=== PATIENT | female | born 1985 | race Caucasian/White ===

== ENCOUNTER 2017-08-02 23:41 | Emergency (ER) | payer SELFPAY ==
[~2017-08-02 23:41] MED LIST: Iopamidol 370 76% 100 ML VIAL ONE
[2017-08-03] MEDS ORDERED: Ketorolac Tromethamine 30 MG/ML VIAL ONE (00:06)
[2017-08-03 00:29] LABS: Bilirubin Negative (Negative); Blood, Urine Trace (Negative); Clarity Clear (Clear); Glucose, Urine (Dipstick) Negative (Negative); Leukocyte Negative (Negative); Nitrite Negative (Negative); Protein, Urine (Dipstick) Negative (Neg-Trace); Specific Gravity, Urine 1.003 (1.002-1.036); Urobilinogen 0.2 mg/dL (0.2-1.0); pH, Urine 6.5 (5.0-9.0)
[2017-08-03 00:30] LABS: BHCG - Serum Negative (NEGATIVE); Pregs Control Background? CLEAR/WHITE (CLR/WHITE); Pregs Control Bar Appear? YES (CONTROL BAR)
[2017-08-03 00:33] LABS: Bacteria/HPF None Seen HPF (None Seen); RBC/HPF 0-3 HPF (0-3); Squamous Epithelial 0-3 HPF (0-3); WBC/HPF 0-3 HPF (0-3)
[2017-08-03 00:34] LABS: Hyaline Casts/LPF 0-3 HYALINE CAST LPF (0-3 Hyaline)
[2017-08-03 00:44] LABS: #Basophils 0.1 thou/uL (0.0-0.2); #Eosinphils 0.3 thou/uL (0.0-0.7); #Lymphocytes 2.5 thou/uL (1.20-3.40); #Monocytes 0.7 thou/uL (0.11-0.59); #Neutrophils 10.7 thou/uL (1.40-6.50); %Basophils 0.7 % (0.0-1.0); %Eosinophils 1.9 % (0.0-10.0); %Lymphocytes 17.7 % (21.0-51.0); %Monocytes 4.5 % (0.0-10.0); %Neutrophils 75.2 % (42.0-75.0); Hemoglobin 13.4 g/dL (12.0-16.0); Mean Corpuscular HGB CONC 36.8 g/dL (32.0-36.0); Mean Corpuscular Hemoglobin 31.5 pg (27.0-31.0); Mean Corpuscular Volume 85.6 fl (81.0-99.0); Mean Platelet Volume 7.3 fL (7.4-10.4); Platelet Count 307 thou/uL (130-400); RBC Distribution Width 10.9 % (11.5-14.5); Red Blood Cell (RBC) Count 4.26 mill/uL (4.20-5.40); White Blood Cell (WBC) Count 14.2 thou/uL (4.8-10.8)
[2017-08-03 01:05] LABS: ALT (SGPT) 16 U/L (8-55); AST (SGOT) 16 U/L (5-34); Albumin 4.7 g/dL (3.5-5.0); Alkaline Phosphatase 69 U/L (40-150); Anion Gap 16 mmol/L (10-20); BUN (Urea Nitrogen) 10 mg/dL (7.0-18.7); Bilirubin, Total 1.1 mg/dL (0.2-1.2); Calc. Creatinine Clearance 0 mL/min (70-130); Calcium 9.4 mg/dL (7.8-10.44); Carbon Dioxide 21 mmol/L (22-29); Chloride 105 mmol/L (98-107); Estimated GFR-MDRD Greater than 90; Globulin 2.5 g/dL (2.4-3.5); Glucose 102 mg/dL (70-105); Potassium 3.6 mmol/L (3.5-5.1); Protein, Total 7.2 g/dL (6.0-8.3); Sodium 138 mmol/L (136-145)
[2017-08-03 04:32] LABS: #Basophils 0.1 thou/uL (0.0-0.2); #Eosinphils 0.2 thou/uL (0.0-0.7); #Lymphocytes 2.4 thou/uL (1.20-3.40); #Monocytes 0.5 thou/uL (0.11-0.59); #Neutrophils 8.3 thou/uL (1.40-6.50); %Basophils 0.5 % (0.0-1.0); %Eosinophils 2.1 % (0.0-10.0); %Lymphocytes 20.9 % (21.0-51.0); %Monocytes 4.4 % (0.0-10.0); %Neutrophils 72.2 % (42.0-75.0); Hemoglobin 11.3 g/dL (12.0-16.0); Mean Corpuscular HGB CONC 36.1 g/dL (32.0-36.0); Mean Corpuscular Hemoglobin 31.2 pg (27.0-31.0); Mean Corpuscular Volume 86.3 fl (81.0-99.0); Mean Platelet Volume 7.3 fL (7.4-10.4); Platelet Count 242 thou/uL (130-400); Red Blood Cell (RBC) Count 3.64 mill/uL (4.20-5.40); White Blood Cell (WBC) Count 11.5 thou/uL (4.8-10.8)
--- NOTE | 2017-08-03 08:13 | RAD ---
PORTABLE CHEST 1 VIEW: Date: 08/03/17 Time: 0043 hours HISTORY: Abdominal pain. FINDINGS: The heart size is normal. The lungs are clear. Bony structures are unremarkable. IMPRESSION: Normal exam. POS: [facility]
--- NOTE | 2017-08-03 08:57 | CT ---
PRELIMINARY REPORT/[facility]/EMERGENTY AFTER-HOURS PROCEDURE CT Abdomen and Pelvis With Intravenous Contrast CLINICAL HISTORY: 32 years old, female; Pain; Abdominal pain; Localized; Lower; Patient HX: Severe lower abd and pelvic pain since noon after having sexual intercourse. Hs of iud for five years TECHNIQUE: Axial computed tomography images of the abdomen and pelvis with intravenous contrast. All CT scans at this facility use one or more dose reduction techniques, viz.: automated exposure con trol; ma/kV adjustment per patient size (including targeted exams where dose is matched to indication ; i.e. head); or iterative reconstruction technique. Coronal reformatted images were created and revi ewed. CONTRAST: 90 ml of [id number] administered intravenously. COMPARISON: Report, June 11, 2016 FINDINGS: Lower thorax: No acute findings. ABDOMEN: Liver: Normal. No mass. Gallbladder and bile ducts: Normal. No calcified stones. No ductal dilation. Pancreas: Normal. No ductal dilation. Spleen: Normal. No splenomegaly. Adrenals: Normal. No mass. Kidneys and ureters: Subcentimeter left renal hypodensity, suspect cyst, too small to characterize. Stomach and bowel: Normal. No obstruction. No mucosal thickening. Appendix: Visualized portions of appendix appear normal. PELVIS: Bladder: Unremarkable as visualized. Reproductive: IUD in central portion of normal sized uterus. Small hypodensities - suspected cysts alexander spected in bilateral ovaries. ABDOMEN and PELVIS: Intraperitoneal space: Mild-moderate heterogenous free fluid in pelvis; mild fluid in bilateral midup per abdomen. Bones/joints: No acute fracture. No dislocation. Soft tissues: Unremarkable. Vasculature: Normal. No abdominal aortic aneurysm. Lymph nodes: Normal. No enlarged lymph nodes. IMPRESSION: Mild-moderate heterogenous free fluid in pelvis; mild fluid in bilateral mid- upper abdomen. -Finding s most suspicious for hemorrhagic fluid possibly related to ruptured ovarian cyst vs. indeterminate t rauma. (Patient had ovarian cysts reported on prior CT.) Thank you for allowing us to participate in the care of your patient. Dictated and Authenticated by: Ruth Unger MD 08/03/2017 2:25 AM Central Time ([place] & [place]) FINAL REPORT CT ABDOMEN AND PELVIS WITH IV CONTRAST PERFORMED ON AN EMERGENCY BASIS: Date: 08/03/17 Time: 0106 hours HISTORY: Abdominal pain. FINDINGS: Findings agree with the preliminary report by [facility]. Fluid is present throughout the pelvis. Possibly gynecologic in origin. Other cause is not apparent. Lack of oral contrast limits evaluation of bowel. No evidence of obstruction. Appendix not well visualized. Contraceptive device is apparent within t he uterus. POS: OFF
--- NOTE | 2017-08-03 09:00 | ULT ---
PRELIMINARY REPORT/[facility]/EMERGENTY AFTER-HOURS PROCEDURE US Pelvis Complete, Transabdominal US Pelvis, Transvaginal CLINICAL HISTORY: 32 years old, female; Pain; Other: Sever rlq pain, HX of rt ov cyst TECHNIQUE: Real-time transabdominal and transvaginal pelvic ultrasound (complete) with image documentation. Pradhan svaginal imaging was used for better evaluation of the endometrium and adnexa. COMPARISON: CT - Abdomen^[id number] (Adult) 2017-08-03 00:23 FINDINGS: Uterus/cervix: Uterus is appears normal in size 3.7 x 4.8 x 8.3 cm. IUD in central portion of normal sized uterus. Normal endometrial stripe thickness. No myometrial mass. Right ovary: Right ovary poorly defined, 4.4 x 2.1 x 2.3 cm possible internal cyst. Normal blood flow . Left ovary: Left ovary poorly defined, 4.2 x 2.6 x 4.3 cm possible internal cyst. Normal blood flow. Free fluid: Mild bilateral upper abdominal free fluid. Mild- moderate heterogenous complex pelvic hernan e fluid. Bladder: Bladder appears within normal limits. IMPRESSION: 1. Mild bilateral upper abdominal free fluid. 2. Normal sized uterus with IUD. 3. Poorly defined bilateral ovaries with possible internal cysts. 4. Mild- moderate heterogenous pelvic free fluid-suspect hemorrhagic fluid, possibly related to ruptu re ovarian cyst/cysts. Thank you for allowing us to participate in the care of your patient. Dictated and Authenticated by: Ruth Unger MD 08/03/2017 3:08 AM FINAL REPORT PELVIC SONOGRAM TRANSABDOMINAL AND TRANSVAGINAL IMAGING WITH DUPLEX EVALUATION: DATE: 08/03/17. TIME: Performed on an emergency basis at 0148 hours. HISTORY: Pelvic pain. FINDINGS: Agree with the preliminary report by Dr. Unger from [facility]. Free fluid is confirmed. Ca use is not apparent. Intrauterine contraceptive device in place. Good color and spectral flow withi n the right ovary. Left ovary not visualized. POS: OFF
[2017-08-04 03:17] LABS: Chlamydia by PCR Not Detected (NotDetected); GC by PCR Not Detected (NotDetected)
== END 2017-08-03 04:48 | disposition home or self-care (01) ==
LOC: SCSER 23:41
DX: N83.201 Unspecified ovarian cyst, right side (principal); F17.210 Nicotine dependence, cigarettes, uncomplicated
CPT/HCPCS: 71045; 74177; 76856; 80053; 81003; 81015; 84703; 85025; 87480; 87491; 87510; 87591; 87660; 96361; 96374; 96376; J1885; J2270